=== PATIENT | female | born 1975 | race Asian ===

== ENCOUNTER 2018-12-30 11:15 | Day surgery (SDC) | payer BC ==
[2018-12-29 17:31] VITALS: BMI 26.6
[2018-12-30] MEDS ORDERED: SODIUM CHLORIDE 0.9% P/F 10 ML VIAL IJ ONE ×2 (12:34→12:38)
[2018-12-30] MEDS ORDERED: LIDOCAINE HCL/PF 2% SDV 5ML VIAL ONE (12:34)
[2018-12-30] MEDS ORDERED: DEXAMETHASONE SOD PHOSPHATE 4 MG/1 ML VIAL ONE (12:34)
[2018-12-30] MEDS ORDERED: KETOROLAC TROMETHAMINE 30 MG/1 ML VIAL ONE (12:34)
[2018-12-30] MEDS ORDERED: PROPOFOL 20 ML ONE (12:34)
[2018-12-30] MEDS ORDERED: ceFAZolin SODIUM 1 GM VIAL ONE (12:34)
[2018-12-30] MEDS ORDERED: ROCURONIUM BROMIDE 50 MG/5 ML SYRINGE ONE (12:35)
[2018-12-30] MEDS ORDERED: MIDAZOLAM HCL 2 MG/2 ML SINGLE DOSE VIAL ONE ×2 (12:51)
[2018-12-30] MEDS ORDERED: KETAMINE HCL 200 MG/20 ML VIAL ONE (12:52)
[2018-12-30] MEDS ORDERED: BUPIVACAINE HCL/PF 0.5% (5 MG/ML) 30 ML VIAL IJ ONE ×2 (13:07→13:43)
[2018-12-30] MEDS ORDERED: INDOCYANINE GREEN 25 MG/10 ML VIAL IVPUSH ONE (13:07)
[2018-12-30] MEDS ORDERED: LIDOCAINE HCL 1% EPINEPHRINE 1:200,000 30 ML VIAL (PF) ONE (13:08)
--- NOTE | 2018-12-30 13:14 | HP ---
History & Physical Update - History History: No Change - Physical Physical: No Change - Assessment Assessment: No Change - Plan Plan: No Change (no changes since visit on 12/[address] Randle)
[2018-12-30] MEDS ORDERED: GLYCOPYRROLATE 0.2 MG/1 ML VIAL ONE ×2 (13:19→14:28)
[2018-12-30] MEDS ORDERED: ceFAZolin SODIUM 1 GM VIAL IVPB ONE (13:33)
[2018-12-30] MEDS ORDERED: MAGNESIUM SULF 50% (8.12 MEQ/2 ML-1 GM VIAL) ONE (13:36)
[2018-12-30] MEDS ORDERED: EPHEDRINE SULFATE/0.9% NACL/PF 50 MG/10 ML SYRINGE NR ONE (13:44)
[2018-12-30] MEDS ORDERED: ONDANSETRON 4 MG/2 ML VIAL IVPUSH PRN (14:18)
[2018-12-30] MEDS ORDERED: oxyCODONE HCL 5 MG TABLET PO PRN (14:18)
[2018-12-30] MEDS ORDERED: PROMETHAZINE HCL 25 MG/1 ML VIAL IVPUSH PRN (14:18)
[2018-12-30] MEDS ORDERED: NEOSTIGMINE METHYLSULFATE 0.5 MG/ML - 10 ML MDV ONE (14:26)
[2018-12-30] MEDS ORDERED: LACTATED RINGERS SOLUTION 1,000 ML IV SCH (14:30)
--- NOTE | 2018-12-30 15:44 | SURG ---
Surgery Granite Polisher Apprentice Note Granite Polisher Apprentice: Charlene Renteria PA-C Date of Service: 12/30/18 Diagnosis: Right ovarian cyst. abdominal pain Procedure: Robotic assisted laparoscopic bilateral salpingectomy and right oorphorectomy I was present for the entirety of the operative procedure. For further detail, please refer to operative report. Visit type - Case Type Case Type: Scheduled - Emergency Emergency Visit: No - New patient This patient is new to me today: Yes Date on this admission: 12/30/18
--- NOTE | 2018-12-30 15:47 | OP ---
Operative Note - Note: Operative Date: 12/30/18 Pre-Operative Diagnosis: Right ovarian cyst. abdominal pain Operation: Robotic assisted laparoscopic bilateral salpingectomy and right oorphorectomy Post-Operative Diagnosis: Same as Pre-op Surgeon: Marti Randle Dry Cleaner: Charlene Renteria Anesthesiologist/PITCH GATHERER: Mayo Haywood Anesthesia: General, Local Specimens Removed: bilateral fallopian tubes. right ovary Estimated Blood Loss (mls): 20 Drains, Volume Out (mls): 300 (saldana) Fluid Volume Replaced (mls): 1,200 Operative Report Dictated: Yes
--- NOTE | 2018-12-30 16:19 | OP ---
DATE OF OPERATION: 12/30/2018 PREOPERATIVE DIAGNOSIS: Right adnexal mass. POSTOPERATIVE DIAGNOSIS: Right adnexal mass. PROCEDURE: Robotic-assisted right salpingo-oophorectomy, left salpingectomy. SURGEON: Marti Randle MD BORE MILL OPERATOR FOR PLASTIC: MORE Ruiz ANESTHESIA: General endotracheal and local. ESTIMATED BLOOD LOSS: 10 mL. COMPLICATIONS: None. INDICATIONS: This is a 43-year-old 2, para 1 with history of a right ovarian palpated on exam. She had a pelvic ultrasound that showed the uterus to be 6.5 x 7.4 x 5.6 cm with small fibroids, largest 3.7 cm. Endometrial stripe 7.08 mm. Right ovary measured 6.4 x 4.1 x 4.1 cm with a complex cystic lesion with a solid avascular papillary projection 18 mm. Previously, this cyst was 3.0 x 2.0 cm. Left ovary measured 3.7 x 3.1 x 3.3 cm. No free fluid. CA-125 was 18.1, and a T4 was normal. Patient was counseled regarding surgical management. Risks, benefits, indications, alternatives were discussed with patient. All questions were answered. Informed consent was signed. FINDINGS: Uterus approximately 10 weeks' size and bulky with multiple subserosal fibroids adherent entirely to the anterior abdominal wall to the fundus. Left tube and ovary appeared normal. The right ovary was approximately 4 cm with a 3-cm cystic lesion within it. The tubes appeared normal. There was no evidence of endometriosis in the pelvis. The appendix looked normal. The liver edge and diaphragm appeared normal. DESCRIPTION OF PROCEDURE: The patient was taken to the operating room. Placed in the dorsal supine position. General endotracheal anesthesia was obtained without difficulty. She was placed in the dorsal lithotomy position in [facility] and prepped and draped in the normal sterile fashion. Obando catheter was placed in the bladder, 5 mL of 0.25% Marcaine was injected into the umbilicus, and an 8-mm incision was made with a scalpel. While tenting the anterior abdominal wall, the Veress needle was inserted intra-abdominally. The abdomen was insufflated with CO2 gas. An 8-mm trocar was placed. Intra-abdominal placement was confirmed by direct visualization with a laparoscope. Additional 8-mm trocar was placed in the left lower quadrant and right mid quadrant over her prior abdominoplasty incision. All trocars were placed after injecting 0.25% Marcaine under direct visualization. A thorough exam of the abdomen and pelvis revealed the above-noted findings. Peritoneal washings were taken using normal saline. The da Kacie robot was then docked without difficulty. The right adnexa was elevated. The right infundibulopelvic ligament was noted to be well away from the ureter. The left infundibulopelvic ligament was clamped, cauterized, and transected. This was carried to the broad ligament, and the utero-ovarian ligament, and the fallopian tube distally. The left adnexa was elevated. Left fallopian tube was grasped. The mesosalpinx was clamped, cauterized, and transected. This was carried through the mesosalpinx to the fallopian tube at the cornu. The left tube and right tube and ovary were handed off the field in a large EndoCatch bag in the right lower quadrant incision. The right tube and ovary were sent for frozen section and returned mucinous, benign cyst. The pelvis was noted to be thoroughly hemostatic. All instruments were removed from the patient's abdomen. The da Kacie robot was then docked. We again look intra-abdominally. Excellent hemostasis was seen. All trocars were removed. The right lower quadrant incision was closed at the fascia using 0 Vicryl. Skin was closed with 4-0 Monocryl, and Dermabond was applied. Patient was extubated and transferred in stable condition to the PACU. Noemi [id number]
[2018-12-30 18:35] VITALS: TEMP 98.3
[2018-12-30 19:11] VITALS: BP 116/72; PULSE 71
--- NOTE | 2019-01-01 16:34 | PATH ---
Surgical Pathology Report Patient Name: DELORES HUITRON [facility]. Rec. #: [id number] /Age/Gender: 1975 (Age: 43) / F Account: [id number] Location: AMBULATORY SURG Taken: 12/30/2018 Received: 12/30/2018 Reported: 01/01/2019 Physicians: Marti Randle MD Specimen(s) Received A: RIGHT FALLOPIAN TUBE AND OVARY FOR FROZEN SECTION B: LEFT FALLOPIAN TUBE C: RIGHT PELVIC CYST Clinical History Right adnexal cyst Intraoperative Consult Diagnosis Right adnexal cyst frozen: Mucinous neoplasm. No definitive invasion present. Dr. Hodges Final Diagnosis A. RIGHT FALLOPIAN TUBE AND OVARY, SALPINGO-OOPHORECTOMY: OVARY WITH BENIGN SEROMUCINOUS CYSTADENOMA. CYSTIC FOLLICLES PRESENT. PORTION OF FALLOPIAN TUBE WITH PARATUBAL CYSTS. B. LEFT FALLOPIAN TUBE, SALPINGECTOMY: PORTION OF FALLOPIAN TUBE WITH PARATUBAL CYSTS AND ENDOSALPINGIOSIS. COMPLETE CROSS SECTION OF THE FALLOPIAN TUBE LUMEN IDENTIFIED. C. RIGHT PELVIC CYST, EXCISION: CYSTS LINED BY BENIGN TUBAL TYPE EPITHELIUM. Electronically Signed Мария Hodges M.D. Gross Description A. Received fresh labeled "right fallopian tube and ovary," is a 4 cm in length portion of fallopian tube. No fimbria are present. The outer surface is sanchez-pink and smooth. Sectioning reveals unremarkable lumen. Also received within the same container is a 6.0 x 4.2 x 0.8 cm aggregate of multiple sanchez-pink portions of soft tissue, consistent with a disrupted ovary and possible ovarian cysts. Sectioning reveals focally firm ovarian parenchyma. A sales representative section is submitted for frozen section. Senior Linux Engineer sections are submitted in 6 cassettes as follows: 1-frozen section residue; 2-cross sections of fallopian tube; 2-7-lhcdgiqljiaqeu ovary. B. Received in formalin labeled "left fallopian tube," is a 2.5 cm in length fimbriated fallopian tube. The outer surface is sanchez-wood and smooth. Sectioning reveals an unremarkable lumen. Senior Linux Engineer sections are submitted in 2 cassettes as follows: 1-fimbria; 2-cross sections of fallopian tube. C. Received in formalin labeled "right pelvic cyst," is a 0.6 x 0.5 x 0.2 cm sanchez wood portion of soft tissue, consistent with a cyst. The specimen is submitted in toto in one cassette. 12/30/201812/30/2018
--- NOTE | 2019-01-05 16:56 | PATH ---
Cytology Non-Gynecological Report Patient Name: DELORSE HUITRON [facility]. Rec. #: [id number] /Age/Gender: 1975 (Age: 43) / F Account: [id number] Location: AMBULATORY SURG Taken: 12/30/2018 Received: 12/30/2018 Reported: 01/05/2019 Physicians: Marti Randle MD Specimen(s) Received PELVIC WASHINGS Clinical History Right adnexal cyst Final Diagnosis PELVIC WASHINGS: SATISFACTORY FOR EVALUATION. NEGATIVE FOR MALIGNANT CELLS. MESOTHELIAL CELLS, MACROPHAGES, AND FEW INFLAMMATORY CELLS PRESENT. Also see concurrent pathology report [id number]. Electronically Signed Мария Hodges M.D. Gross Description Approximately 40cc of yellow fluid received fresh. One cytospin and one cellblock prepared.
== END 2018-12-30 17:40 | disposition home or self-care (01) ==
LOC: JASUSAT 11:15
PROVIDERS: ATTEND Obstetrics & Gynecology Gynecologic Oncology
PROC: 0UB74ZZ Excision of Bilateral Fallopian Tubes, Percutaneous Endoscopic Approach (ICD-10-PCS; 2018-12-30)
PROC: 0UT04ZZ Resection of Right Ovary, Percutaneous Endoscopic Approach (ICD-10-PCS; principal; 2018-12-30 13:00)
DX: D27.0 Benign neoplasm of right ovary (principal); N83.8 Other noninflammatory disorders of ovary, fallopian tube and broad ligament
CPT/HCPCS: 36415; 84702; 86850; 86900; 86901; 88108; 88305-TC; 94760

== ENCOUNTER 2022-09-14 05:40 | Day surgery (SDC) | payer BC ==
[2022-09-10 10:24] VITALS: BMI 27.1
[2022-09-14] MEDS ORDERED: HYDROmorphone HCl 2 MG/ML VIAL ONE ×2 (15:08→15:34)
[2022-09-14] MEDS ORDERED: MIDAZOLAM HCL 2 MG/2 ML SINGLE DOSE VIAL ONE (15:08)
[2022-09-14] MEDS ORDERED: PROPOFOL 40 ML ONE (15:08)
[2022-09-14] MEDS ORDERED: SUCCINYLCHOLINE CHLORIDE 200 MG/10 ML SYRINGE ONE (15:10)
[2022-09-14] MEDS ORDERED: ROCURONIUM BROMIDE 50 MG/5 ML SYRINGE ONE (15:10)
[2022-09-14] MEDS ORDERED: ePHEDrine SULFATE 50 MG/1 ML AMPULE ONE (15:11)
[2022-09-14] MEDS ORDERED: ceFAZolin SODIUM 1 GM VIAL ONE (15:25)
[2022-09-14] MEDS ORDERED: ceFAZolin SODIUM 1 GM VIAL IVPB ONE (15:25)
[2022-09-14] MEDS ORDERED: DEXAMETHASONE SOD PHOSPHATE 4 MG/1 ML VIAL ONE (15:26)
[2022-09-14] MEDS ORDERED: KETOROLAC TROMETHAMINE 30 MG/1 ML VIAL ONE (15:26)
[2022-09-14] MEDS ORDERED: ONDANSETRON 4 MG/2 ML VIAL ONE (15:26)
[2022-09-14] MEDS ORDERED: ACETAMINOPHEN INJECTION 100 ML IVPB ONE (15:29)
[2022-09-14] MEDS ORDERED: oxyCODONE HCL 5 MG TABLET PO PRN (16:43)
[2022-09-14] MEDS ORDERED: LACTATED RINGERS SOLUTION 1,000 ML IV SCH (16:45)
[2022-09-14 17:53] VITALS: RESP 16
[2022-09-14 18:17] VITALS: BP 123/76; PULSE 72; TEMP 98
== END 2022-09-14 18:17 | disposition home or self-care (01) ==
LOC: JASU-SURG 05:40
PROVIDERS: ATTEND Obstetrics & Gynecology
PROC: 0U5B8ZZ Destruction of Endometrium, Via Natural or Artificial Opening Endoscopic (ICD-10-PCS; principal; 2022-09-14 15:00)
DX: N92.0 Excessive and frequent menstruation with regular cycle (principal); D25.0 Submucous leiomyoma of uterus
CPT/HCPCS: 81025; 88305-TC; 94760